=== PATIENT | female | born 1975 | race Caucasian/White ===

== ENCOUNTER → 2016-10-09 | Outpatient (CLI) | payer OTHER ==
[~2016-10-09] MED LIST: HYDR-5688 PO
[2016-10-09 18:24] LABS: THYROID STIMULATING HORMONE 0.815 uIu/ml (0.300-4.500)
== END | disposition home or self-care (01) ==
LOC: C.LABMFLN 10:07
PROVIDERS: ATTEND Family Medicine
DX: R00.0 Tachycardia, unspecified (principal)

== ENCOUNTER 2017-08-20 06:59 | Inpatient (IN) | payer OTHER ==
[2017-07-22 11:09] VITALS: BMI 32.0
--- NOTE | 2017-07-22 11:44 | PAT Medication Instructions ---
Service Date Jul 22, 2017. Current Home Medication List Cyclobenzaprine Hcl (Flexeril), 10 MG PO TID PRN for Muscle Spasms Gabapentin (Neurontin), 300 MG PO TID Hydrocodone/Acetaminophen 10MG/325MG ([place] 10MG/325MG), 1 TAB PO HS PRN for Pain Medication Instructions For Your Scheduled Surgery - Hold the following medications the morning of surgery: Cyclobenzaprine Hcl (Flexeril), 10 MG PO TID PRN for Muscle Spasms - Take the following medications the morning of surgery with a sip of water OTHERWISE NOTHING TO EAT OR DRINK AFTER MIDNIGHT: Gabapentin (Neurontin), 300 MG PO TID Hydrocodone/Acetaminophen 10MG/325MG ([place] 10MG/325MG), 1 TAB PO PRN for Pain ( may take if needed up to 4 hours prior to surgery) - Take the following medications as scheduled the night before surgery: Hydrocodone/Acetaminophen 10MG/325MG ([place] 10MG/325MG), 1 TAB PO PRN for Pain Cyclobenzaprine Hcl (Flexeril), 10 MG PO TID PRN for Muscle Spasms Gabapentin (Neurontin), 300 MG PO TID If you have any questions please call us at [phone] or [phone] or [phone]
--- NOTE | 2017-07-22 12:22 | DIAGNOSTIC IMAGING REPORT ---
CHEST 2 VIEWS ROUTINE HISTORY: Preop. COMPARISON: None. FINDINGS: The lungs are clear. Cardiac silhouette is normal in size. No pleural effusions. No pneumothorax. Cholecystectomy. IMPRESSION: No acute process. Electronically signed by: Jerry Cline M.D. 07/22/2017 12:20 PM Dictated Date/Time: 07/22/2017 12:18 PM
[2017-07-22 13:34] LABS: URINE APPEARANCE CLEAR (CLEAR); URINE BILIRUBIN NEG (NEG); URINE COLOR DK YELLOW; URINE NITRITE NEG (NEG); URINE PH 6.5 (4.5-7.5); URINE SPECIFIC GRAVITY 1.028 (1.000-1.030); UROBILINOGEN NEG (NEG)
[2017-07-22 13:36] LABS: MANUAL MICROSCOPIC REQUIRED? NO; REVIEW REQ? NO
[2017-07-22 13:47] LABS: BUN/CREATININE RATIO 11.8 (10-20); CALCIUM 8.8 mg/dl (8.5-10.1); CREATININE 0.71 mg/dl (0.60-1.20); POTASSIUM 4.5 mmol/L (3.5-5.1)
[2017-07-22 14:10] LABS: BASO % 0.4 %; BASO ABS # 0.02 K/uL (0-0.2); COMPLETE YES; EOS % 2.3 %; HEMATOCRIT 40.8 % (37-47); IG% 0.2 %; LYMPH % 25.1 %; LYMPH ABS # 1.22 K/uL (1.2-3.4); MEAN CELL VOLUME 93.4 fL (80-100); MEAN CORPUSCULAR HEMOGLOBIN 32.5 pg (25-34); MEAN CORPUSCULAR HGB CONC 34.8 g/dl (32-36); MONO % 7.6 %; NEUT % 64.4 %; PLATELET COUNT 291 K/uL (130-400); RED BLOOD COUNT 4.37 M/uL (4.2-5.4); WHITE BLOOD COUNT 4.86 K/uL (4.8-10.8)
[~2017-08-20] VITALS: Ht 165.1 cm; Wt 89.6 kg
[2017-08-20] VITALS (14 sets, daily range): BP systolic 110–177; BP diastolic 70–95; PULSE 62–81; TEMP 36.8–36.9; O2SAT 93–98; Ht 165.1 cm; Wt 89.6 kg
[~2017-08-20 06:59] MED LIST changes: +BUPR-267 PO; +CEFAZOLIN 2000MG IV PUSH 10 ML IV SCH; +CYCL10TA6 PO; +HYDR-4079 PO; -HYDR-5688 PO; +LACTATED RINGER'S 1000ML 1,000 ML IV SCH; +TPRSR50 PO
[2017-08-20] MEDS ORDERED: NICO14DI9 TOP (08:05)
[2017-08-20] MEDS ORDERED: MIDAZOLAM HCL 1 MG/ML 2ML VIAL ONE (09:11)
[2017-08-20] MEDS ORDERED: FENTANYL CITRATE INJ 50 MCG/1 ML 2 ML VIAL ONE ×2 (09:11→10:14)
--- NOTE | 2017-08-20 09:20 | History & Physical Bridge Note ---
H&P Re-Evaluation Bridge Note: I have examined the patient, reviewed the History & Physical and in the interval since the performance of the History & Physical I have noted the following changes of clinical significance: No changes noted
--- NOTE | 2017-08-20 09:21 | History and Physical ---
History & Physical Date Aug 20, 2017. Chief Complaint Neck and arm pain History of Present Illness The patient is a 42 year old female with complaints of neck and arm pain Additional History Hepatic Disease: No Endocrine Disorder: No Kidney Disease: No Hypertension: Yes Heart Disease: No Bleeding Tendencies: No Infectious Diseases: No Allergies Coded Allergies: No Known Allergies (Unverified , 07/22/17) Home Medications Scheduled Bupropion Hcl (Bupropion Hcl Er), 1 TAB PO DAILY Metoprolol Succinate (Metoprolol Succinate ER), 1 TAB PO DAILY Nicotine (Nicotine), 1 PATCH TOP DAILY Scheduled PRN Cyclobenzaprine Hcl (Flexeril), 10 MG PO TID PRN for Muscle Spasms Hydrocodone/Acetaminophen 10MG/325MG ([place] 10MG/325MG), 1 TAB PO HS PRN for Pain Physical Examination Skin: warm/dry, no rash Eyes: normal inspection, EOMI, sclerae normal ENT: normal ENT inspection, pharynx normal Head: normocephalic, atraumatic Neck: supple, no adenopathy, trachea midline Respiratory/Chest: lungs clear, normal breath sounds, no respiratory distress Cardiovascular: regular rate, rhythm, no edema, no murmur Abdomen / GI: normal bowel sounds, non tender Back: normal inspection Extremities: normal inspection, normal range of motion Neurologic/Psych: no motor/sensory deficits, alert, normal reflexes, oriented x 3 Diagnosis Cervical spondylosis with myeloradiculopathy Plan of Treatment ACDF C5 6 C6 7
[2017-08-20] MEDS ORDERED: BACITRACIN 50000 UNIT VIAL ONE (09:42)
[2017-08-20] MEDS ORDERED: HYDROmorphone INJ 2 MG/ML SYR/VIAL ONE ×2 (10:14→11:24)
[2017-08-20] MEDS ORDERED: EpHEDrine SULFATE 50MG/5ML SYR ONE ×2 (10:54→11:25)
[2017-08-20] MEDS ORDERED: FLOSEAL HEMOSTATIC MATRIX 5ML TOP ONE (11:22)
[2017-08-20] MEDS ORDERED: ROCURONIUM BROMIDE 10 MG/ML 5 ML VIAL IV ONE (11:25)
[2017-08-20] MEDS ORDERED: NEOSTIGMINE METHYLSULFATE 1 MG/ML 10ML VIAL ONE (11:25)
[2017-08-20] MEDS ORDERED: ONDANSETRON INJ 2 MG/ML 2 ML VIAL ONE (11:25)
[2017-08-20] MEDS ORDERED: DEXAMETHASONE SOD INJ 4 MG/ML VIAL ONE (11:25)
[2017-08-20] MEDS ORDERED: LIDOCAINE HCL 2% 2 ML VIAL (20MG/ML) ONE (11:25)
[2017-08-20] MEDS ORDERED: GLYCOPYRROLATE INJ 0.2 MG/ML VIAL ONE (11:25)
[2017-08-20] MEDS ORDERED: PROPOFOL IV EMULSION 10 MG/ML 20 ML VIAL IV ONE (11:25)
[2017-08-20] MEDS ORDERED: LORAZEPAM 0.5 MG TAB PO PRN (11:30)
[2017-08-20] MEDS ORDERED: DO NOT ADMINISTER FLU VACCINE PRN ×3 (11:30)
[2017-08-20] MEDS ORDERED: HYDROmorphone INJ 0.5 MG/0.5 ML SYR IV PRN (11:30)
[2017-08-20] MEDS ORDERED: DiphenhydrAMINE HCL 50 MG/ML VIAL IV PRN (11:30)
[2017-08-20] MEDS ORDERED: DO NOT ADMINISTER PNEUMOCOCCAL VACCINE PRN ×2 (11:30)
[2017-08-20] MEDS ORDERED: LORAZEPAM INJ 0.5 MG in SYRINGE 0.75 ML IV PRN (11:30)
[2017-08-20] MEDS ORDERED: CYCLOBENZAPRINE HCL 10 MG TAB PO PRN (11:30)
[2017-08-20] MEDS ORDERED: NALOXONE HCL 0.4 MG/1 ML VIAL/CARP IV PRN (11:30)
[2017-08-20] MEDS ORDERED: DEXAMETHASONE INJ 8 MG in SYRINGE 0 ML IV PRN (11:30)
[2017-08-20] MEDS ORDERED: ONDANSETRON INJ 2 MG/ML 2 ML VIAL IV PRN ×2 (11:30→13:45)
[2017-08-20] MEDS ORDERED: MAGNESIUM HYDROXIDE SUSP 30 ML UDC PO PRN (11:30)
[2017-08-20] MEDS ORDERED: ACETAMINOPHEN IV 1,000 MG in EMPTY BAG 0 ML IV PRN (11:30)
[2017-08-20] MEDS ORDERED: RACEPINEPHRINE 2.25% NEBU SOLN 0.5 ML VIAL INH PRN (11:30)
--- NOTE | 2017-08-20 11:36 | [facility] Operative Report ---
Operative Report Operative Date Aug 20, 2017. Pre-Operative Diagnosis Cervical spondylosis with myeloradiculopathy Post-Operative Diagnosis SAME Procedure(s) Performed #1 anterior cervical discectomy bilateral foraminotomies C5 6 C6 7. #2 anterior cervical arthrodesis C5 6 C6 7. #3 placement of cortical R graft filled with Protonix 8 mm in height C5 6 C6 7. #4 application of parker plate and screws at C5 [address] Corral [employer](s) Alexi Ash PA-C Estimated Blood Loss 30 ml Findings Spinal stenosis Specimens none per surgeon Description of Procedure Patient was met with preoperatively case discussed all questions addressed. After informed consent was obtained patient was taken to the operative suite placed in a supine position the head in the [place] headholder. All bony prominences were well-padded eyes inspected to ensure there is no external pressure placed upon. This point the anterior cervical spines prepped draped nostril fashion. Sharp dissection with the assistance of bipolar cautery was performed onto an exposing the anterior cervical spine at C5 6 and C7. Self retaining retractors placed. We verified a position with fluoroscopy. Then performed a complete discectomy of C5 6 out to the uncovertebral joints bilaterally. This included removal all posterior annular fibers and longitudinal ligament. [place] distracting pins were utilized to assist us no visualization. After complete decompression an plates were burred to subcortical bleeding bone and an 8 mm cortical allograft filled with DBM tapped in position. Distracting apparatus was removed proceeded to C6 7. A complete discectomy performed out to the uncovertebral joints bilaterally. The remove all posterior annular fibers and longitudinal ligament and bilateral foraminotomies performed. An plates burred to subcortical bleeding bone. A 8 mm cortical allograft filled with DBM was tapped in position. Distracting apparatus was removed all anterior [place] writes burred to a smooth cortical surface and a parker plate and screws applied with the assistance of fluoroscopy. Incision was in copious irrigated explored to ensure there is no damage to surrounding structures remaining bleeding and a 10 round NEGIN drain inserted. Was then closed with 2 Vicryl in the fascia for Monocryl for [place] closure Steri-Strips sterile dressing placed patient we can take PACU stable condition. Please note Arnaldo record was present at the entire procedure involved in patient positioning complex portions of the surgery and final skin closure. I attest to the content of the Intraoperative Record and any orders documented therein. Any exceptions are noted below.
[2017-08-20] MEDS ORDERED: HYDROmorphone INJ 1 MG/ML SYR ONE (11:46)
--- NOTE | 2017-08-20 12:02 | DIAGNOSTIC IMAGING REPORT ---
CERVICAL 2 OR 3 VIEWS CLINICAL HISTORY: 42 years-old Female presenting with ACDF C5-C7. TECHNIQUE: 3 fluoroscopic spot image(s) obtained as part of an intraoperative procedure. COMPARISON: 06/03/2017. FINDINGS/IMPRESSION: There has been interval anterior cervical discectomy and fusion of C5-C7. Grossly normal anatomic alignment. Please see surgical report for further details. Fluoroscopy dosage (mGy): Not available. Fluoroscopy time: 10.6 seconds. Number of fluoroscopic spot images: 3. Electronically signed by: Bairon Arenas M.D. 08/20/2017 12:01 PM Dictated Date/Time: 08/20/2017 12:00 PM
[2017-08-20] MEDS ORDERED: ESMOLOL HCL 10 MG/ML 10 ML VIAL ONE (12:25)
[2017-08-20] MEDS: LACTATED RINGER'S 1000ML 1,000 ML IV SCH ×2 (13:05→23:57)
[2017-08-20] MEDS ORDERED: OXYCODONE HCL IR 5 MG TAB (IMMEDIATE RELEASE) ONE (13:22)
[2017-08-20] MEDS ORDERED: HYDROmorphone INJ 2 MG/ML SYR/VIAL IV PRN (13:45)
[2017-08-20] MEDS ORDERED: HYDROmorphone INJ 1 MG/ML SYR IV PRN ×2 (13:45)
[2017-08-20] MEDS ORDERED: ATROPINE SULFATE 0.1 MG/ML 5ML SYR IV PRN (13:45)
--- NOTE | 2017-08-20 13:48 | Anesthesiology Progress Note ---
Anesthesia Post Op Note Date & Time Aug 20, 2017 at 13:47 Vital Signs Pain Intensity: 7.0 Vital Signs Past 12 Hours Date Time Temp Pulse Resp B/P (MAP) Pulse Ox O2 Delivery O2 Flow Rate FiO2 08/20/17 12:50 62 16 122/82 98 Nasal Cannula 3 08/20/17 12:40 36.6 73 16 123/84 98 Nasal Cannula 3 08/20/17 12:30 71 16 135/83 97 Nasal Cannula 3 08/20/17 12:20 73 16 124/86 97 Nasal Cannula 3 08/20/17 12:10 74 16 118/80 93 Oxymask 5 08/20/17 12:00 68 16 121/76 94 Oxymask 5 08/20/17 11:50 36.3 70 16 123/80 93 Oxymask 10 08/20/17 11:40 36.3 73 16 117/76 90 Oxymask 10 08/20/17 07:13 62 18 116/83 Room Air Notes Mental Status: alert / awake / arousable, participated in evaluation Pt Amnestic to Procedure: Yes Nausea / Vomiting: adequately controlled Pain: adequately controlled Airway Patency, RR, SpO2: stable & adequate BP & HR: stable & adequate Hydration State: stable & adequate Anesthetic Complications: no major complications apparent
[2017-08-20] MEDS ORDERED: SCOPOLAMINE 1.5 MG TDSY TD SCH (14:00)
[2017-08-20] MEDS ORDERED: RXC5 PO (14:16)
--- NOTE | 2017-08-20 14:17 | Discharge Instructions ---
Discharge Instructions Date of Service Aug 20, 2017. Admission Reason for Admission: Spinal Stenosis Discharge Discharge Diagnosis / Problem: cervical stenosis Discharge Goals Goal(s): Improve function Activity Recommendations Activity Limitations: per Instructions/Follow-up section . Instructions / Follow-Up Instructions / Follow-Up ACTIVITY RECOMMENDATIONS: SELF CARE INSTRUCTIONS AFTER CERVICAL FUSIONS 1. No smoking. Smoking drastically decreases the chance of a solid fusion. 2. No bending, lifting more than 5 pounds, or twisting (roll like a log when turning in bed). 3. You may shower 3 days after surgery. Thoroughly dry wound. Do not soak in the tub. 4. Cervical collar: Must be worn at all times including sleeping. You may remove the brace only to bath, eat and if you are sitting in a recliner. 5. Please walk as much as you can for exercise. Gradually increase the distance that you walk as your endurance increases. SPECIAL CARE INSTRUCTIONS: VERY IMPORTANT TO READ AND REVIEW A. Do not take any anti-inflammatory medications (i.e. Indocin, Advil, Aspirin, Naprosyn, Aleve, Motrin, etc.) as these may inhibit the chance of a solid fusion. Tylenol is okay to take. B. Your surgical incision has been closed with a cosmetic suture under the skin that will dissolve in about 6 weeks. In 14 days, you can use a pair of clean scissors and cut the suture that is left outside of the skin at the ends of your incision. C. Complications are uncommon, but please contact us if you have any signs or symptoms of: 1. wound infection (fever higher than 102.5 degrees F, redness, separation of wound, drainage, or increasing pain from the incision) 2. blood clots in legs (pain, swelling, redness and warmth in legs) 3. urinary tract infection (fever higher than 102.5 degrees, burning upon urination or increased frequency of urination) 4. nerve problems (inability to walk on your toes or heels, numbness, loss of bowel or bladder control) 5. any other symptoms that concern you. D. Please call the office at if you have any concerns or questions about your operation or recovery. MANAGING PAIN AFTER SPINAL SURGERY 1. Narcotic medication is intended for short-term use and will be provided for surgical pain. Surgical pain usually lasts for a period of 4-6 weeks. Narcotic medication includes Percocet, Vicodin, Darvocet, Tylenol #3 or Lortab. 2. Longer-term pain is more appropriately treated with non-narcotic medication such as Tylenol ES. 3. Muscle spasm is not appropriately treated with narcotics. Muscle relaxers such as Soma, Flexeril or Skelaxin can be used along with Tylenol ES. 4. Remember that we all live with some "aches and pains". This is not unusual or uncommon after an injury or as we get older. 5. We will provide appropriate medication within the normal guidelines of their prescribed use. We will also be very cautious and aware of potential abuse and extended duration of patients' medication needs. 6. Please allow 2-3 days to process refills. Prescriptions will not be mailed but must be picked up at the office. FOLLOW UP VISIT: Keep your scheduled follow-up appointment. Any questions, please call the office at . Current Hospital Diet Patient's current hospital diet: Clear Liquid Diet Discharge Diet Recommended Diet: Regular Diet Procedures Procedures Performed: #1 anterior cervical discectomy bilateral foraminotomies C5 6 C6 7. #2 anterior cervical arthrodesis C5 6 C6 7. #3 placement of cortical R graft filled with Protonix 8 mm in height C5 6 C6 7. #4 application of parker plate and screws at C5 6 C6 7. Pending Studies Studies pending at discharge: no Medical Emergencies . Who to Call and When: Medical Emergencies: If at any time you feel your situation is an emergency, please call 911 immediately. . Non-Emergent Contact Non-Emergency issues call your: Primary Care Provider . "Provider Documentation" section prepared by Manoj Corral. . VTE Core Measure Inpt VTE Proph given/why not?: Yimi Lei, SCD's
[2017-08-20] MEDS: NICOTINE 14 MG/24 HR TDSY TD SCH (14:58)
[2017-08-20] MEDS ORDERED: COUGH DROP (SUGAR FREE) LOZ 24 LOZ/1 BOX ONE (15:06)
[2017-08-20] MEDS ORDERED: COUGH DROP (SUGAR FREE) LOZ 24 LOZ/1 BOX PO PRN (15:15)
[2017-08-20] MEDS: CHECK SCOPOLAMINE PATCH PLACEMENT SCH ×2 (15:58→23:58)
[2017-08-20] MEDS: OXYCODONE HCL IR 5 MG TAB (IMMEDIATE RELEASE) PO PRN (17:46)
[2017-08-20] MEDS: CEFAZOLIN IV 2,000 MG in SYRINGE 0 ML IV SCH (20:36)
[2017-08-20] MEDS: DOCUSATE SODIUM 100 MG CAP PO SCH (20:37)
[2017-08-20] MEDS: DEXAMETHASONE INJ 6 MG in SYRINGE 0 ML IV SCH (20:47)
[2017-08-21] VITALS (11 sets, daily range): BP systolic 117–147; BP diastolic 73–82; PULSE 71–80; TEMP 36.7–37; O2SAT 90–96
[2017-08-21] MEDS: OXYCODONE HCL IR 5 MG TAB (IMMEDIATE RELEASE) PO PRN ×3 (01:49→11:13)
[2017-08-21] MEDS: DEXAMETHASONE INJ 6 MG in SYRINGE 0 ML IV SCH (03:04)
[2017-08-21] MEDS: CEFAZOLIN IV 2,000 MG in SYRINGE 0 ML IV SCH (03:04)
[2017-08-21] MEDS: CHECK SCOPOLAMINE PATCH PLACEMENT SCH (06:53)
[2017-08-21] MEDS: DOCUSATE SODIUM 100 MG CAP PO SCH (07:12)
[2017-08-21] MEDS: NICOTINE 14 MG/24 HR TDSY TD SCH (07:13)
[2017-08-21] MEDS ORDERED: BuPROPion SR 150 MG TABCR PO SCH (09:00)
[2017-08-21] MEDS ORDERED: METOPROLOL SUCC 50MG EXT REL TAB PO SCH (09:00)
[2017-08-21] MEDS ORDERED: CYCL10TA6 PO (09:33)
--- NOTE | 2017-08-21 09:56 | Discharge Summary ---
Orthopedic Discharge Summary Admission Date/Reason Aug 20, 2017 at 09:30 Spinal Stenosis. Discharge Date/Disposition Aug 21, 2017 Home Diagnosis Principal Diagnosis: Cervical spinal stenosis Admission Physical Exam As per Admitting History & Physical. Hospital Course Patient underwent anterior cervical discectomy and fusion tolerated this well as taken to the orthopedic floor postoperatively. Postoperative day #1 she was up and amatory swallowing well no hoarseness arm symptoms improved substernally discharge home discharge orders and instructions found on the chart for review. Discharge Instructions Please refer to the electronic Patient Visit Report (Discharge Instructions) for additional information.
[2017-08-22] MEDS ORDERED: BISACODYL 10 MG SUPP PR PRN (06:00)
[2017-08-22] MEDS ORDERED: BISACODYL 5 MG TABEC PO PRN (06:00)
[2017-08-22] MEDS ORDERED: POLYETHYLENE (MIRALAX) 17 GM PACK PO SCH (09:00)
== END 2017-08-21 11:18 | disposition home or self-care (01) | DRG 473 ==
LOC: C.ACU 06:59 → C.3E 09:30 → ENRESERV 12:37
PROVIDERS: ADMIT Orthopaedic Surgery Orthopaedic Surgery of the Spine; ATTEND Orthopaedic Surgery Orthopaedic Surgery of the Spine
PROC: 0RT30ZZ Resection of Cervical Vertebral Disc, Open Approach (ICD-10-PCS; principal; 2017-08-20 09:50)
PROC: 0RG20J0 Fusion of 2 or more Cervical Vertebral Joints with Synthetic Substitute, Anterior Approach, Anterior Column, Open Approach (ICD-10-PCS; principal; 2017-08-20 09:50)
DX: M48.02 Spinal stenosis, cervical region (principal)